=== PATIENT | female | born 1980 | race Two or more races ===

== ENCOUNTER 2024-05-09 14:38 | Outpatient (CLI) | payer OTHER | END 2024-05-09 14:39 | disposition home or self-care (01) | LOC: CSHMAMMO 14:38 | PROVIDERS: ATTEND Family Medicine | DX: Z53.9 Procedure and treatment not carried out, unspecified reason (principal) ==

== ENCOUNTER 2024-05-24 13:48 | Outpatient (CLI) | payer OTHER | END 2024-05-24 13:49 | disposition home or self-care (01) | LOC: CSHMAMMO 13:48 | PROVIDERS: ATTEND Family Medicine | DX: R59.0 Localized enlarged lymph nodes (principal) | CPT/HCPCS: 77066; G0279 ==

== ENCOUNTER 2024-06-06 08:56 | Outpatient (CLI) | payer OTHER | END 2024-06-06 08:57 | disposition home or self-care (01) | LOC: CSHULT 08:56 | PROVIDERS: ATTEND Physician Assistant Medical | DX: R14.0 Abdominal distension (gaseous) (principal); R10.9 Unspecified abdominal pain; R74.8 Abnormal levels of other serum enzymes; R12 Heartburn; K59.00 Constipation, unspecified; K76.0 Fatty (change of) liver, not elsewhere classified | CPT/HCPCS: 76705 ==